=== PATIENT | male | born 1995 | race Caucasian/White ===

== ENCOUNTER 2018-12-10 09:05 | Inpatient (IN) ==
[2018-12-10] MEDS ORDERED: PHENOBARBITAL IV PRN (12:23)
[2018-12-10] MEDS ORDERED: DULCOLAX PR PRN (12:23)
[2018-12-10] MEDS ORDERED: TYLENOL PO PRN (12:23)
[2018-12-10] MEDS ORDERED: NICOTINE GUM BUCCAL PRN (12:23)
[2018-12-10] MEDS ORDERED: TUBERSOL ID ONE (12:23)
[2018-12-10] MEDS ORDERED: ZOFRAN IV PRN (12:23)
[2018-12-10] MEDS ORDERED: ZOFRAN IM PRN (12:23)
[2018-12-10] MEDS ORDERED: SENOKOT PO PRN (12:23)
[2018-12-10] MEDS ORDERED: D5W 1,000 ML IV PRN (12:23)
[2018-12-10] MEDS ORDERED: MAALOX PLUS LIQUID PO PRN (12:23)
[2018-12-10] MEDS ORDERED: DESYREL PO PRN (12:23)
[2018-12-10] MEDS ORDERED: NICODERM PATCH TD PRN (12:23)
[2018-12-10] MEDS ORDERED: ZOFRAN ODT PO PRN (12:23)
[2018-12-10] MEDS ORDERED: IMODIUM PO PRN ×2 (12:23)
[2018-12-10 12:50] LABS: URINE SOURCE CLEAN CATCH
[2018-12-10 12:54] LABS: COLOR YELLOW
[2018-12-10 12:56] LABS: GLUCOSE URINE NEGATIVE (NEGATIVE)
[2018-12-10 12:58] LABS: UR AMPHETAMINES QUAL NONE DETECTED (NONE DETECT); UR BARBITUATES QUAL NONE DETECTED (NONE DETECT); UR BENZODIAZEPIN QUAL PRESUMPTIVE POSITIVE (NONE DETECT); UR CANNABINOIDS QUAL NONE DETECTED (NONE DETECT); UR COCAINE QUAL NONE DETECTED (NONE DETECT); UR METHADONE QUAL NONE DETECTED (NONE DETECT); UR METHAMPHETAMINE QUAL NONE DETECTED (NONE DETECT); UR OPIATES QUAL NONE DETECTED (NONE DETECT); UR OXYCODONE QUAL NONE DETECTED (NONE DETECT); UR PCP QUAL NONE DETECTED (NONE DETECT); UR PROPOXYPHENE QUAL NONE DETECTED (NONE DETECT); UR TCA QUAL NONE DETECTED (NONE DETECT); URINE BACTERIA NEGATIVE /HFP; URINE CAST NONE SEEN /LPF; URINE CRYSTAL NONE SEEN /HPF; URINE EPITHELIAL CELLS <10 /HPF (<10); URINE RBC <10 /HPF (<10); URINE WBC <10 /HPF (<10); URINE YEAST NONE SEEN /HPF
[2018-12-10 13:08] LABS: HEMATOCRIT 41.4 % (42.0-52.0); HEMOGLOBIN 14.8 g/dL (14.0-18.0); MCH 31.2 PG (27-31); MCHC 35.7 g/dL (33-37); MCV 87.2 FL (81-99); MPV 10.2 FL (7.4-10.4); RBC 4.75 XMIL (4.7-6.1); RDW 11.7 % (11.5-14.5); WBC 5.02 X1000 (4.8-10.8)
[2018-12-10] MEDS ORDERED: SINEMET 25/100 PO PRN (13:14)
[2018-12-10] MEDS ORDERED: BENTYL PO PRN (13:14)
[2018-12-10] MEDS ORDERED: LIBRIUM PO PRN (13:14)
[2018-12-10] MEDS ORDERED: LIBRIUM PO SCH (13:15)
[2018-12-10] MEDS ORDERED: SUBOXONE 2 MG/0.5 MG FILM SL SCH (13:15)
[2018-12-10 13:23] LABS: AGAP 11; ALBUMIN 4.6 g/dL (3.5-5.0); ALKALINE PHOSPHATASE 60 U/L (32-122); AMYLASE 39 U/L (20-200); BUN 13 mg/dL (8-22); CALCIUM 9.1 mg/dL (8.8-10.2); CHLORIDE 101 mmol/L (98-107); COSMO 279; CREATININE 0.9 mg/dL (0.7-1.2); ESTIMATED GFR > 60; GLUCOSE 96 mg/dL (70-104); GOT 20 U/L (10-34); GPT 12 U/L (10-44); LIPASE 27 U/L (13-60); POTASSIUM 4.6 mmol/L (3.5-5.1); SODIUM 140 mmol/L (136-145); TCO2 28 mmol/L (25-35)
[2018-12-10 13:36] LABS: BILIRUBIN URINE NEGATIVE (NEGATIVE); BLOOD URINE NEGATIVE (NEGATIVE); CLARITY CLEAR (CLEAR); KETONE URINE NEGATIVE (NEGATIVE); LEUKOCYTES URINE NEGATIVE (NEGATIVE); NITRITE URINE NEGATIVE (NEGATIVE); PH URINE 6.5; PROTEIN URINE TRACE mg/dL (NEGATIVE); UROBILINOGEN URINE NORMAL
[2018-12-10] MEDS ORDERED: AFRIN NASAL SPRAY NAS PRN (14:50)
[2018-12-10] MEDS: ATARAX PO PRN (15:21)
[2018-12-10] MEDS: MOTRIN PO PRN (15:22)
--- NOTE | 2018-12-10 18:54 | HISTORY AND PHYSICAL ---
CHIEF COMPLAINT: Nausea, vomiting. HISTORY OF PRESENT ILLNESS: The patient is a 23-year-old male who [facility] secondary to nausea, vomiting, abdominal pain, myalgias. The patient states that he has been taking benzodiazepines as well as Suboxone. He states he has been getting all of this off the street. Denies any current fevers or chills. SOCIAL HISTORY: He is single. He is unemployed. Lives at home in [place]. PAST MEDICAL HISTORY: Positive only for: 1. Chronic sinus issues. 2. Chronic anxiety. 3. Frequent panic attacks. MEDICATIONS: No prescription medications. ALLERGIES: None. REVIEW OF SYSTEMS: CINA score is 9 secondary to frequent nausea, abdominal pain, fatigue, watery eyes, runny nose, insomnia, myalgias, frequent paroxysmal sweating. Denies any fevers or chills. Denies chest pain or palpitations. Denies any dysuria, frequency, urgency, hesitancy, polyuria or polydipsia. Denies any skin rashes, weight loss, or weight gain. SUBSTANCE ABUSE HISTORY: The patient was in treatment in 2012 at [place], again in 2014. He states he has been taking Klonopin and Xanax since age 15; currently takes 2 mg or more a day. 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 He has been taking Suboxone off and on since age 17. Does not smoke or drink. FAMILY HISTORY: Noncontributory. PHYSICAL EXAMINATION: VITAL SIGNS: Reviewed and stable. GENERAL: Patient is awake, alert. He is currently in no respiratory distress. He is very pleasant to talk with. He is somewhat ill-appearing due to his withdrawal symptoms. HEENT: Normocephalic. NECK: Supple. CARDIOVASCULAR: Regular rate. No murmurs. CHEST: Clear. ABDOMEN: Soft, nondistended. EXTREMITIES: Moves all extremities. NEUROLOGIC: No focal changes. ASSESSMENT: 1. Nausea and vomiting. 2. Abdominal pain. 3. Myalgias. 4. Paresthesias. 5. Paroxysmal sweating. 6. Opiate abuse withdrawal and stabilization. 7. Benzodiazepine abuse, withdrawal, and stabilization. PLAN: We will admit patient to hospital. We will continue to follow, begin counseling, and place him on Suboxone taper. Hopefully, he can wean totally off of Suboxone and go home on naltrexone. However, discussed with patient that we should not make that decision hastily. Discussed that whether he is home on Suboxone or on naltrexone alone, we need to define and decide which will make him the most successful. cc: Arturo Coley MD
[2018-12-10] MEDS ORDERED: NASALIDE NAS PRN (22:18)
[2018-12-10] MEDS: SUBOXONE 2 MG/0.5 MG FILM SL SCH (22:38)
[2018-12-10] MEDS: LIBRIUM PO SCH (22:38)
[2018-12-10] MEDS: SEROQUEL PO PRN (22:38)
[2018-12-10] MEDS: ROBAXIN PO PRN (22:40)
[2018-12-11] MEDS ORDERED: FLU VACCINE IM ONE (02:27)
[2018-12-11] MEDS ORDERED: FLONASE NAS PRN (06:00)
[2018-12-11] MEDS: PROTONIX PO SCH (06:17)
[2018-12-11] MEDS: SUBOXONE 2 MG/0.5 MG FILM SL SCH ×2 (09:59→21:40)
[2018-12-11] MEDS: FLONASE NAS SCH ×2 (10:00→21:40)
[2018-12-11] MEDS: THERA M PLUS PO SCH (10:00)
[2018-12-11] MEDS: VITAMIN B-1 PO SCH (10:00)
[2018-12-11] MEDS: LIBRIUM PO SCH ×2 (10:00→21:40)
[2018-12-11] MEDS: FOLIC ACID PO SCH (10:00)
--- NOTE | 2018-12-11 13:05 | PROGRESS NOTE ---
DATE: 12/11/2018 SUBJECTIVE: Patient notes that overall he is feeling a little bit better with less muscle aches. Still having lots of nasal congestion and mild cough. He denies any fevers or chills. PHYSICAL EXAMINATION: Vital signs: Temperature 97.7, pulse 55, respiratory rate 20, BP 101/44. General: Patient is awake, alert. He is in no current respiratory distress. Very pleasant to talk with. HEENT: Normocephalic. Neck: Supple. Cardiovascular: Regular rate. No murmurs. Chest: Clear, nonlabored. Abdomen: Soft. Extremities: Moves all extremities. Neurologic: No changes. ASSESSMENT: 1. Nausea/vomiting. 2. Abdominal pain. 3. Myalgias. 4. Paresthesias. 5. Paroxysmal sweating. 6. Polysubstance use and abuse. PLAN: We will continue counseling. Continue to follow. Further orders as needed. Continue Suboxone. We will attempt to wean off as tolerated. cc: Arturo Coley MD
[2018-12-11] MEDS: ATARAX PO PRN (15:33)
[2018-12-11] MEDS: MOTRIN PO PRN (19:54)
[2018-12-11] MEDS: ROBAXIN PO PRN (21:40)
[2018-12-11] MEDS: SEROQUEL PO PRN (21:40)
[2018-12-12] MEDS: PROTONIX PO SCH (06:26)
[2018-12-12] MEDS: LIBRIUM PO SCH ×2 (08:48→21:35)
[2018-12-12] MEDS: SUBOXONE 2 MG/0.5 MG FILM SL SCH ×2 (08:48→21:34)
[2018-12-12] MEDS: THERA M PLUS PO SCH (08:48)
[2018-12-12] MEDS: FOLIC ACID PO SCH (08:48)
[2018-12-12] MEDS: FLONASE NAS SCH ×3 (08:49→21:34)
[2018-12-12] MEDS: VITAMIN B-1 PO SCH (08:58)
[2018-12-12] MEDS: ATARAX PO PRN (15:18)
[2018-12-12] MEDS: ROBAXIN PO PRN (21:35)
[2018-12-12] MEDS: SEROQUEL PO PRN (21:35)
[2018-12-13] MEDS: ATARAX PO PRN ×3 (01:04→22:00)
[2018-12-13] MEDS: PROTONIX PO SCH (06:15)
[2018-12-13] MEDS: VITAMIN B-1 PO SCH (08:55)
[2018-12-13] MEDS: SUBOXONE 2 MG/0.5 MG FILM SL SCH ×2 (08:55→21:05)
[2018-12-13] MEDS: FOLIC ACID PO SCH (08:55)
[2018-12-13] MEDS: THERA M PLUS PO SCH (08:55)
[2018-12-13] MEDS: LIBRIUM PO SCH (08:55)
[2018-12-13] MEDS: FLONASE NAS SCH ×3 (08:56→21:05)
[2018-12-13] MEDS: MOTRIN PO PRN ×2 (09:03→21:05)
--- NOTE | 2018-12-13 12:03 | PROGRESS NOTE ---
DATE: 12/13/2018 SUBJECTIVE: Patient notes overall he is still anxious, nervous and still worried, still stressed over going home. He is not sure if he is feeling worse after decreasing Suboxone to 2 mg however, he is willing to continue to trial 2 mg a day. PHYSICAL EXAMINATION: Vital Signs: Reviewed. Temperature 97.6 degrees, pulse 68, respiratory 18, and BP 106/69. General: Patient is awake and currently in no respiratory distress. HEENT: Normocephalic. Neck: Supple. Cardiovascular: Regular rate. Chest: Clear. Abdomen: Soft. Extremities: Moves all extremities. ASSESSMENT AND PLAN: 1. Nausea and vomiting. Abdominal pain. 2. Myalgias. 3. Acute stress reaction. 4. Opiate abuse withdrawal and stabilization. 5. Benzo abuse withdrawal. 6. Chronic tobacco abuse. PLAN: We will continue patient in the hospital, continue to wean Suboxone as tolerated. Certainly, we expect that he will need to discharge home on Suboxone. Discussed with patient that he still needs outpatient life counseling as well. cc: Arturo Coley MD
[2018-12-13] MEDS: SEROQUEL PO PRN (21:05)
[2018-12-14] MEDS: PROTONIX PO SCH (06:05)
[2018-12-14 07:47] VITALS: BP 133/82
[2018-12-14] MEDS: THERA M PLUS PO SCH (08:58)
[2018-12-14] MEDS: VITAMIN B-1 PO SCH (08:58)
[2018-12-14] MEDS: ATARAX PO PRN (08:58)
[2018-12-14] MEDS: SUBOXONE 2 MG/0.5 MG FILM SL SCH (08:58)
[2018-12-14] MEDS: FOLIC ACID PO SCH (08:58)
[2018-12-14] MEDS: FLONASE NAS SCH (08:59)
--- NOTE | 2018-12-14 14:39 | DISCHARGE SUMMARY ---
ADMISSION DATE: 12/10/2018 DISCHARGE DATE: 12/14/2018 DISCHARGE DIAGNOSES: 1. Nausea and vomiting, resolved. 2. Abdominal pain, resolved. 3. Paresthesias, resolved. 4. Paroxysmal sweating, resolved. 5. Polysubstance use and abuse, improved. 6. Chronic anxiety and depression, still problematic. CONSULTATIONS: None. PROCEDURES: None. BRIEF HOSPITAL COURSE: The patient is a 23-year-old male, who presented to [facility] secondary to nausea, vomiting, abdominal pain, myalgias and paresthesias. He was noted to be abusing opiates. He was admitted to the hospital, placed on Suboxone to help with his withdrawal symptoms. The initial intent was to wean totally off of Suboxone, however his withdrawal symptoms were too severe to allow this to happen. This was exacerbated by his chronic anxiety and depression. He was started on hydroxyzine for his anxiety. The patient thankfully had an overall uneventful hospital stay. DISPOSITION: Thirty minutes was spent on total care. The patient will be discharged home on Wellbutrin for his depression, hydroxyzine p.r.n. for his anxiety. Discussed with him that he needs outpatient life counseling, as well as drug counseling. Discussed that he needs to avoid all persons, places, situations which he has been using and abusing in the past. We will discharge him home with a single prescription of Suboxone #10 8 mg strips to take one-fourth daily and to wean down. Instructions were explicitly written. cc: Arturo Coley MD
== END 2018-12-14 09:12 | disposition home or self-care (01) | DRG 897 ==
LOC: P.MEDSURG 10:42
PROVIDERS: ADMIT Family Medicine; ATTEND Family Medicine
CPT/HCPCS: 80053; 80104; 80301; 80305; 80307; 80320; 81001; 82055; 82150; 83690; 85027; A9270; G0431; G0434; G0477; G0480; G6040